=== PATIENT | female | born 1980 | race Caucasian/White ===

== ENCOUNTER 2021-08-03 21:03 | Emergency (ER) | payer SELFPAY ==
[2021-08-03 21:09] VITALS: BP 120/72; PULSE 76; RESP 16; TEMP 36.2; O2SAT 99
--- NOTE | 2021-08-03 21:24 | W.ED.GENAD ---
Discharge Plan Disposition Patient Disposition: HOME Condition: Good Discharge Details Clinical Impression: Tick bite [facility] Issa Del[facility] Discharge Instructions Instructions: Tick Bite (ED) Additional Instructions: If you develop any fever chills, body aches, bull's-eye type rash, joint swelling, or other abnormal symptoms please follow-up with your primary care provider and inform them that you were bitten by a tick that potentially could carry Lyme disease. Otherwise perform daily tick checks and use insect repellent to minimize chance of vector borne illness. Referrals: Primary Care Provider [Outside] (As needed for reassessment or if you develop any signs or symptoms of Lyme disease) Discharge Data Discharge Date/Time-TO BE ENTERED AT DEPARTURE: 08/03/21 21:36 Medical Decision Making Patient presenting to the emergency department for chief complaint of tick bite to left inner thigh. Patient unsure of attachment time. Patient did bring in tick and it is a deer tick. Patient denies any other signs or symptoms. Physical exam is unremarkable except for localized reaction where tick bite had occurred. Given unsure of attachment time and significant localized reaction with the appropriate type of tick we will give patient single dose of doxycycline. Did discuss with patient typical signs and symptoms of Lyme disease and that she should follow-up with her primary care provider if any of these occur within the next month. After discussion of diagnosis and plan of care patient has no further needs, questions, or concerns and states clear understanding to return to the emergency department for any worsening symptoms. HPI General Mode of arrival: ambulatory. Date/Time Provider Initiated Documentation: 08/03/21 21:15. Limitations to Documentation: no limitations. Information obtained by: patient and RN notes reviewed. History of Present Illness 41 year old F presents to the emergency department with the chief complaint of Tick bite, Quality is described as other (Denies pain or discomfort), and is localized to the left and lower extremity. Patient reports no radiation. Patient started experiencing this unknown and it has been constant. No relieving factors improve symptom(s), No exacerbating factors reported . Patient notes no other symptoms.. Patient did receive the following treatments prior to arrival, none Related Data Allergies Allergy/AdvReac Type Severity Reaction Status Date / Time peanut Allergy Severe Anaphylaxis Unverified 08/03/21 21:13 General Stated Complaint: GenMedical ALINA: 4 Review of Systems Constitutional Constitutional: Denies body ache(s), Denies fever(s) and Denies headache(s) ENT Ears, Nose, Mouth, and Throat: Denies headache(s) Musculoskeletal Musculoskeletal: Denies myalgias, Denies arthralgias and Denies joint swelling Integumentary/Breasts Skin/Breast: Reports as per HPI, Denies erythema and Denies rash Neurologic Neurologic: Denies headache(s) and Denies paresthesias PFSH All Active Problems Tick bite (Acute) Social History Smoking/Tobacco Use Status: Never Smoking risk assessment performed?: Yes Do you feel safe at home: Yes Do you feel safe in your relationship?: Yes Exam Const General: cooperative, comfortable and no acute distress Orientation: alert, awake and oriented x3 Resp Effort & Inspection: normal respiratory effort and able to speak in complete sentences Skin General skin exam: erythema (Circular area with central bite alberto consistent with insect/tick bite), no fluctuance and no induration Rashes: no rashes Neuro General: patient alert, patient awake and patient oriented x3 Course Vital Signs Vital signs: Vital Signs Temperature 36.2 C L 08/03/21 21:09 Pulse 76 08/03/21 21:09 Respiratory Rate 16 08/03/21 21:09 Blood Pressure 120/72 08/03/21 21:09 Pulse Oximetry 99 08/03/21 21:09 Temperature 36.2 C L 08/03/21 21:09 Temperature Source Skin 08/03/21 21:09 Pulse 76 08/03/21 21:09 Respiratory Rate 16 08/03/21 21:09 Respiratory Effort 08/03/21 21:14 Blood Pressure 120/72 08/03/21 21:09 Blood Pressure Position Supine 08/03/21 21:09 Pulse Oximetry 99 08/03/21 21:09 Oxygen Delivery Method Room Air 08/03/21 21:09 Oxygen Flow Rate 0 08/03/21 21:09 Pain Level 2 08/03/21 21:09
[2021-08-03] MEDS: Doxycycline Hyclate 100 MG CAP 200 MG PO (21:31)
== END 2021-08-03 21:36 | disposition home or self-care (01) ==
PROVIDERS: Emergency Provider Nurse Practitioner Family
DX: S70.362A Insect bite (nonvenomous), left thigh, initial encounter (principal); W57.XXXA Bitten or stung by nonvenomous insect and other nonvenomous arthropods, initial encounter
CPT/HCPCS: 99283